=== PATIENT | male | born 1950 | race Caucasian/White ===

== ENCOUNTER → 2018-03-27 | Outpatient (CLI) | payer OTHER, MEDICARE | LOC: M.ULTRA 10:21 | DX: K74.60 Unspecified cirrhosis of liver (principal); Z94.4 Liver transplant status; Z79.899 Other long term (current) drug therapy ==

== ENCOUNTER 2018-11-01 17:58 | Inpatient (IN) | payer OTHER, MEDICARE ==
[~2018-11-01] VITALS: Ht 180.3 cm; Wt 133.6 kg
--- NOTE | ~2018-11-01 | CON ---
[address] [address] CONSULTATION Name: МАРИНА PABLO Room: [address] IN M.R.#: [id number] Admission: 11/01/18 Attend Phys: Pascale Chandler MD Discharge: Date of : 54 Report #: [id number] THIS REPORT FOR: //name// CC: Rolf Chandler DATE OF SERVICE: 11/04/2018 REQUESTING PHYSICIAN: Naldo Kovacs DO REASON FOR CONSULTATION: Acute kidney injury. HISTORY OF PRESENT ILLNESS: The patient is a 67-year-old white male who was admitted on 11/01/2018 with chief complaints of chest pain. The patient apparently was walking on the treadmill with his and he suddenly developed shortness of breath, chest pressure, was brought to the Emergency Room, was diagnosed with STEMI, taken to laborer concrete paving and had a cardiac catheterization done with angioplasty and stenting of some coronary arteries. His creatinine on admission was 1.8. I do not know the baseline of his creatinine is up to 2.4 after cardiac catheterization. His BUN is 58. He is making urine. Hemoglobin is 15.2. Urinalysis not done. He had a CT of abdomen done without contrast and his kidneys were unremarkable. PAST MEDICAL HISTORY: He has some Lewy body dementia, also has a history of obesity, history of nonalcoholic cirrhosis with esophageal varices, status post liver transplant in 2006 follows at by his shear setter. He is on immunosuppressive therapy. MEDICATIONS: Prior to admission reviewed. From my standpoint, he was on cyclosporine, losartan. He also is on insulin. FAMILY HISTORY: Negative for renal disease. SOCIAL HISTORY: No tobacco or alcohol abuse. REVIEW OF SYSTEMS: Feels better now. States that he has no chest pain, no shortness of breath. No discomfort in his chest area. He is urinating without any difficulties. Rest of the systems reviewed and negative. PHYSICAL EXAMINATION: GENERAL: Awake, alert, oriented. VITAL SIGNS: Blood pressure 134/70, heart rate 89, [place] [address] CONSULTATION Name: BEVМАРИНА NOHELIA Room: [address]#: [id number] Admission: 11/01/18 Attend Phys: Psacale Chandler MD Discharge: Date of : 54 Report #: [id number] HEENT: Pupils are round. NECK: Fatty. LUNGS: Decreased air movements, but no crackles. CARDIOVASCULAR: Distant heart tones. ABDOMEN: Obese. LOWER EXTREMITIES: Trace edema. ASSESSMENT: 1. Acute kidney injury due to contrast nephropathy. 2. Coronary artery disease, status post myocardial infarction on 11/01/2018. His troponin is still elevated, actually went up after admission to 37.1 on 11/03/2018. I will defer that to Cardiology. 3. Morbid obesity. 4. Hypertension. 5. History of known alcoholic cirrhosis, status post liver transplant. 6. Dementia. PLAN: 1. The patient is euvolemic. 2. We will await Cardiology opinion on his elevated troponin level. 3. Follow his electrolytes and renal function. 4. At this point, we probably would not diurese him. Thank you very much. By: 1326 2301Ajohnnie Griffith MD /PMT
[2018-11-01 18:03] VITALS: BP 193/98
[2018-11-01 18:12] LABS: ABSOLUTE BASOPHILS 0.1 thou/uL (0.0-0.2); ABSOLUTE EOSINOPHILS 0.3 thou/uL (0.0-0.7); ABSOLUTE LYMPHOCYTES 1.6 thou/uL (0.8-5.3); ABSOLUTE MONOCYTES 0.6 thou/uL (0.0-1.2); ABSOLUTE NEUTROPHILS 4.7 thou/uL (1.6-8.1); BASOPHILS 0.8 %; EOSINOPHILS 4.7 %; HEMATOCRIT 46.4 % (42.0-52.0); HEMOGLOBIN 15.5 gm/dL (14.0-18.0); LYMPHOCYTES 21.7 %; MCH 31.2 pg (26.0-34.0); MCHC 33.4 g/dL (28.0-37.0); MCV 93.4 fL (80.0-100.0); MONOCYTES 8.5 %; MPV 8.5 fl. (7.2-11.1); NUCLEATED RBCS 0 /100WBC; PLATELET COUNT* 265 thou/uL (150-400); POLYS 64.3 %; RBC 4.97 mil/uL (4.50-6.00); RDW-CV 13.8 % (10.5-14.5); WBC 7.3 thou/uL (4.0-11.0)
[2018-11-01 18:21] LABS: CALCIUM 9.1 mg/dL (8.5-10.1); CREATININE 1.8 mg/dL (0.6-1.3); POTASSIUM 4.3 mmol/L (3.5-5.1)
[2018-11-01 18:29] LABS: APTT 26.1 Seconds (25.0-31.3); PROTIME 10.1 Seconds (9.20-11.50)
[2018-11-01] MEDS ORDERED: GENGRAF100 MG PO (18:30)
[2018-11-01] MEDS ORDERED: GEMFIBROZIL 60600 MG PO (18:30)
[2018-11-01] MEDS ORDERED: ARICEPT 5 MG TAB5 MG PO (18:31)
[2018-11-01] MEDS ORDERED: COZAAR 25 MG TA25 M1 PO (18:31)
[2018-11-01] MEDS ORDERED: ATORVASTATIN CA40 MG PO (18:32)
[2018-11-01] MEDS ORDERED: ALENDRONATE SOD70 MG PO (18:32)
[2018-11-01] MEDS ORDERED: OMEPRAZOLE20 M2 PO (18:32)
[2018-11-01] MEDS ORDERED: VITAMIN D2000 UNIT PO (18:32)
[2018-11-01] MEDS ORDERED: BASAGLAR K100 UNIT/1 INJECTION (18:33)
[2018-11-01] MEDS ORDERED: HUMALOG100 UNIT/2 INJECTION (18:33)
[2018-11-01] MEDS ORDERED: TYLENOL EXTRA500 MG PO (18:34)
[2018-11-01] MEDS ORDERED: ALLER-CHLOR4 MG PO (18:35)
[2018-11-01 18:40] LABS: ALBUMIN 3.4 g/dL (3.4-5.0); CK-MB MASS 3.4 ng/mL (<0.5-3.6); MAGNESIUM 1.1 mg/dL (1.8-2.4); TOTAL BILIRUBIN 0.4 mg/dL (<0.1-1.0); TOTAL PROTEIN 7.9 g/dL (6.4-8.2); TROPONIN-I LEVEL 0.09 ng/mL (<0.06)
[2018-11-01 20:48] VITALS: BP 147/98
[2018-11-01 21:07] VITALS: BP 173/92
[2018-11-01 23:36] VITALS: BP 175/86
[2018-11-01 23:37] VITALS: BP 160/87
[2018-11-02] VITALS (13 sets, daily range): BP systolic 127–163; BP diastolic 62–88
[2018-11-02 02:32] LABS: HEMATOCRIT 46.7 % (42.0-52.0); HEMOGLOBIN 15.5 gm/dL (14.0-18.0); MCH 31.4 pg (26.0-34.0); MCHC 33.3 g/dL (28.0-37.0); MCV 94.4 fL (80.0-100.0); MPV 8.4 fl. (7.2-11.1); RBC 4.94 mil/uL (4.50-6.00); RDW-CV 14.1 % (10.5-14.5); WBC 9.3 thou/uL (4.0-11.0)
[2018-11-02 03:12] LABS: CALCIUM 9.5 mg/dL (8.5-10.1); MAGNESIUM 1.7 mg/dL (1.8-2.4); POTASSIUM 4.8 mmol/L (3.5-5.1)
--- NOTE | 2018-11-02 06:52 | NUR ---
RECIEVED PT AT APPROX 2100. AWAKE AND ORIENTED X4. PLACED ON DIRECTOR OF MATERNITY SERVICES TRACING SR BBB. PLACED COMFORTABLY ON BED. WITH COMPLAINTS OF 2/10 CHEST PAIN RADIATING TO THE LEFT SHOULDER. PLACED ON O2 INHALATION AT 4L, O2 SAT @ 90-92%. LAB RESULTS RELAYED TO DR. POLK, PHONE ORDERS RECEIEVED AND CARRIED OUT. HOURLY ROUNDING DONE FOR PT SAFETY.
--- NOTE | 2018-11-02 07:25 | NUR ---
CHANGE OF SHIFT BEDSIDE REPORT GIVEN PATIENT SEEN AT BEDSIDE, IN BED RESTING ASSUMED PATIENT CARE
--- NOTE | 2018-11-02 10:23 | EKG ---
[place] [address] ELECTROCARDIOGRAM REPORT Name: МАРИНА PABLO Room: [place] [address] ADM IN .R.#: [id number] Admission: 11/01/18 Attend Phys: Pascale Chandler MD Discharge: Date of : 54 Report #: [id number] THIS REPORT FOR: //name// [facility] ED Test Date: 2018-11-01 Test Time: 18:01:16 Pat Name: МАРИНА PABLO Department: Room: [facility] Gender: M Digital Retoucher: GISSELLE : 1950 Requested By: Timbo Weiss Order Number: [id number] MD: Peter Hart Measurements Intervals [place] Rate: 76 P: 47 OR: 197 QRS: -35 QRSD: 111 T: 63 QT: 413 QTc: 465 Interpretive Statements Sinus rhythm Incomplete RBBB and LAFB Abnormal R-wave progression, early transition No previous ECG available for comparison Electronically Signed On 11-02-2018 10:22:52 TOOL LIAISON by Peter Hart [email or web address] <ELECTRONICALLY SIGNED> By: Peter Hart MD, FACC 11/02/18 1022 180 1801 Peter Hart MD, [facility] /EPI
--- NOTE | 2018-11-02 10:24 | EKG ---
[place] [address] ELECTROCARDIOGRAM REPORT Name: NEERAJSASHAМАРИНА POZO Room: [place] [address] ADM IN .R.#: [id number] Admission: 11/01/18 Attend Phys: Pascale Chandler MD Discharge: Date of : 54 Report #: [id number] THIS REPORT FOR: //name// [facility] Test Date: 2018-11-02 Test Time: 06:10:26 Pat Name: МАРИНА PABLO Department: Room: [place] [address] Gender: M Music Ministries Director: : 1950 Requested By: Pascale Chandler Order Number: [id number] Reading MD: Peter Hart Measurements Intervals [place] Rate: 99 P: 50 IA: 190 QRS: -53 QRSD: 112 T: 36 QT: 380 QTc: 488 Interpretive Statements Sinus rhythm Incomplete RBBB and LAFB Abnormal R-wave progression, late transition Borderline prolonged QT interval No previous ECG available for comparison Electronically Signed On 11-02-2018 10:24:39 HEEL NAIL RASPER by Peter Hart [email or web address] <ELECTRONICALLY SIGNED> By: Peter Hart MD, FACC 11/02/18 1024 0610 0610 Peter Hart MD, [facility] /EPI
--- NOTE | 2018-11-02 10:24 | EKG ---
[place] [address] ELECTROCARDIOGRAM REPORT Name: BEVМАРИНА NOHELIA Room: [place] [address] ADM IN .R.#: [id number] Admission: 11/01/18 Attend Phys: Pascale Chandler MD Discharge: Date of : 54 Report #: [id number] THIS REPORT FOR: //name// [facility] Test Date: 2018-11-02 Test Time: 00:10:55 Pat Name: МАРИНА PABLO Department: Room: [place] [address] Gender: M Senior Php Web Developer: : 1950 Requested By: Timbo Weiss Order Number: [id number] Reading MD: Peter Hart Measurements Intervals [place] Rate: 98 P: 47 MN: 196 QRS: -52 QRSD: 110 T: 38 QT: 371 QTc: 474 Interpretive Statements Sinus rhythm Incomplete RBBB and LAFB Right ventricular hypertrophy No previous ECG available for comparison Electronically Signed On 11-02-2018 10:24:14 ACCESS REP by Peter Hart [email or web address] <ELECTRONICALLY SIGNED> By: Peter Hart MD, [facility] 11/02/18 1024 0010 0010 Peter Hart MD, FAC /EPI
[2018-11-02 10:45] LABS: CHOLESTEROL 225 mg/dL (<200); HDL CHOLESTEROL 46 mg/dL (>40); LDL CHOLESTEROL 157 mg/dL (<100); SERUM ASSESSMENT Clear; TC:HDL 4.9 Ratio (Not establshd); TRIGLYCERIDE 114 mg/dL (<150); VLDL 23 mg/dL (<40)
--- NOTE | 2018-11-02 12:00 | NUR ---
MET WITH PT AND /HARMONY TO DISCUSS HOME SITUATION/DC PLANNING. PT LIVES WITH . HIS 92 Y/O MOTHER LIVES IN THE [place] AL[place]. THEY CARE FOR HER BUT SHE IS FAIRLY INDEPENDENT. PT IS INDEPENDENT WITH ADLS, HE IS HOME DURING THE DAY WHILE HARMONY WORKS. PT HAS LEWY BODY DEMENTIA PER HARMONY AND IS 'FORGETFUL.' HE DOES HAVE A LIST OF 'DUTIES' TO DO AT HOME AND IS ABLE TO PERFORM THOSE IE: LAUNDRY, ETC. PT HAS NOT HAD HH OR BEEN TO SNF. PLAN IS FOR HIM TO RETURN HOME AT DC. HARMONY IS DPOA. WILL FOLLOW
--- NOTE | 2018-11-02 13:22 | 2DMMODE ---
[place] [address] 2 D/M-MODE ECHOCARDIOGRAM Name: BEVМАРИНА MORENOUGHAN Room: [facility] ADM IN .R.#: [id number] Admission: 11/01/18 Attend Phys: Pascale Chandler, Discharge: Date of : 54 Date of Service: 11/02/18 1322 Report #: [id number] THIS REPORT FOR: //name// APPROVED REPORT Study performed: 11/02/2018 11:41:01 EXAM: Comprehensive 2D, Doppler, and color-flow Echocardiogram Patient Location: In-Patient Room #: 227 Status: routine BSA: 2.47 HR: 103 bpm BP: 157/72 mmHg Rhythm: NSR Other Information Study Quality: Adequate Indications Non STEMI 2D Dimensions IVSd: 15.13 (7-11mm) LVOT Diam: 19.29 (18-24mm) LVDd: 48.90 mm PWd: 10.94 (7-11mm) Ascending Ao: 36.56 (22-36mm) LVDs: 31.98 (25-40mm) Aortic Root: 32.74 mm Volumes Left Atrial Volume (Systole) LA ESV Index: 22.60 mL/m2 Aortic Valve AoV Peak Mega.: 1.48 m/s AO Peak Gr.: 8.75 mmHg LVOT Max P.85 mmHg AO Mean Gr.: 5.05 mmHg LVOT Mean P.09 mmHg LVOT Max V: 1.57 m/s AO V2 VTI: 27.73 cm LVOT Mean V: 1.04 m/s CHANTALE (VTI): 2.85 cm2 LVOT V1 VTI: 27.07 cm Mitral Valve E/A Ratio: 0.85 MV Decel. Time: 153.45 ms MV E Max Mega.: 1.13 m/[place] [address] 2 D/M-MODE ECHOCARDIOGRAM Name: МАРИНА PABLO Room: [place] [address] ADM IN .R.#: [id number] Admission: 11/01/18 Attend Phys: Pascale Chandler, Discharge: Date of : 54 Date of Service: 11/02/18 1322 Report #: [id number] MV PHT: 44.50 ms MVA (PHT): 4.94 cm2 TDI E/Lateral E': 8.69 E/Medial E': 10.27 Medial E' Mega.: 0.11 m/s Lateral E' Mega.: 0.13 m/s Pulmonary Valve PV Peak Mega.: 1.23 m/s PV Peak Gr.: 6.07 mmHg Tricuspid Valve RAP Estimate: 5.00 mmHg TR Peak Gr.: 39.26 mmHg RVSP: 44.00 mmHg PA Pressure: 44.00 mmHg Left Ventricle The left ventricle is normal size. Regional wall motion is not well visualized but grossly normal. There is normal left ventricular wall thickness. Left ventricular systolic function is normal. The left ventricular ejection fraction is within the normal range. LVEF is 60-65%. Grade I - abnormal relaxation pattern. Right Ventricle The right ventricle is normal size. The right ventricular systolic function is normal. Atria Left atrium is borderline dilated. The right atrium size is normal. Aortic Valve The aortic valve is normal in structure. No aortic regurgitation is present. There is no aortic valvular stenosis. Mitral Valve The mitral valve is normal in structure. There is no mitral valve regurgitation noted. No evidence of mitral valve stenosis. Tricuspid Valve The tricuspid valve is normal in structure. Mild tricuspid regurgitation. Moderate pulmonary hypertension. Pulmonic Valve The pulmonary valve is normal in structure. There is no [place]mon[place] [address] 2 D/M-MODE ECHOCARDIOGRAM Name: МАРИНА PABLO Room: [address] IN [facility]#: [id number] Admission: 11/01/18 Attend Phys: Pascale Chandler, Discharge: Date of : 54 Date of Service: 11/02/18 1322 Report #: [id number] Great Vessels The aortic root is normal in size. IVC is not visualized. Pericardium There is no pericardial effusion. <Conclusion> LVEF is 60-65%. Regional wall motion is not well visualized but grossly normal. Left atrium is borderline dilated. There is no aortic valvular stenosis. No aortic regurgitation is present. Mild tricuspid regurgitation. Moderate pulmonary hypertension. There is no pericardial effusion. <ELECTRONICALLY SIGNED> By: Peter Hart MD, FACC 11/02/18 1322 21 21 Peter Hart MD, FACC /INF
[2018-11-02 19:08] LABS: GLYCOHEMOGLOBIN (HGB A1C) 8.7 % (4.8-5.6)
[2018-11-03] VITALS (7 sets, daily range): BP systolic 101–159; BP diastolic 49–88
--- NOTE | 2018-11-03 04:40 | NUR ---
ASSUMED PT CARE @1930. PT AWAKE AND ORIENTED X4. NOT IN DISTRESS. KEPT ON O2 PER NC AT 4L WITH O2 SAT OF 95-96% STEAM FITTER IN PLACE TRACING TO SR. DENIES CHEST PAIN. POST CARDIAC CATH SITE IN THE RIGHT GROIN INTACT AND DRY, RIGHT RADIAL SITE INTACT, WITH APPROX. 1CM BLOOD NOTED IN RAD STAT. KEPT ON BED REST UNTIL 2300. CALL LIGHT IN PLACE. HOURLY ROUNDING DONE FOR PT SAFETY.
[2018-11-03 05:09] LABS: HEMATOCRIT 45.2 % (42.0-52.0); HEMOGLOBIN 14.7 gm/dL (14.0-18.0); MCH 30.9 pg (26.0-34.0); MCHC 32.6 g/dL (28.0-37.0); MCV 94.7 fL (80.0-100.0); MPV 8.7 fl. (7.2-11.1); RBC 4.78 mil/uL (4.50-6.00); WBC 12.5 thou/uL (4.0-11.0)
[2018-11-03 05:21] LABS: ALBUMIN 3.3 g/dL (3.4-5.0); CALCIUM 9.5 mg/dL (8.5-10.1); PHOSPHORUS* 2.4 mg/dL (2.5-4.9); TOTAL BILIRUBIN 0.5 mg/dL (<0.1-1.0); TOTAL PROTEIN 7.7 g/dL (6.4-8.2)
[2018-11-03 05:30] LABS: POTASSIUM 6.4 mmol/L (3.5-5.1); TROPONIN-I LEVEL 37.19 ng/mL (<0.06)
--- NOTE | 2018-11-03 07:25 | NUR ---
PATIENT CAHNGE OF SHIFT, BEDSIDE REPORT GIVEN PATIENT SEEN IN BED ASLEEP ASSUMED PATIENT CARE
--- NOTE | 2018-11-03 10:12 | CARD ---
[address] [address] CARDIAC CATH REPORT Name: МАРИНА PABLO Room: [facility] ADM IN [facility]#: [id number] Admission: 11/01/18 Attend Phys: Pascale Chandler MD Discharge: Date of : 54 Report #: [id number] THIS REPORT FOR: //name// APPROVED REPORT Study performed: 11/02/2018 16:13:20 Patient Details Patient Status: In-Patient Room #: 227 The patient is a 67 year-old male Event Personnel Peter Hart Cathode Washer, Neida Ortega RTHannah Scrub, Nayely Carbajal RN Loan Review Manager, Dmitry Niño (R) Monitor, Tod Trammell Schmalzbach, Brittany RN Loan Review Manager, Hannah Diaz Monitor, Rolf Knight Tank Builder Supervisor Procedures Performed Art Access - R femoral artery* CHRISTOFER Place w/wo Plasty Single CIRC CHRISTOFER Place w/wo Plasty Addl BR PDA C9601 DESADDL Indication Positive stress test Risk Factors Obesity, Hypercholesterolemia Admission/Lab Medications/Medications given during procedure Aspirin, Platelet Aff. Inhib., Angiomax bolus and infusion Procedure Narrative The patient was brought electively to the Cardiac Catheterization Laboratory and was prepped and draped in a sterile manner. The right femoral was infiltrated with 2% Lidocaine subcutaneous anesthesia. A 6fr Ultimum Sheath sheath was inserted into the right femoral artery. Coronary angiography was performed using coronary diagnostic catheters. The right coronary system was accessed and visualized with a Diagnostic 6Fr JR4 catheter. The left coronary system was accessed and visualized with a Diagnostic 6Fr JL4 catheter. The left ventricle was accessed and visualized with a Diagnostic 6Fr angled pigtail catheter. Left ventricular/Aortic Valve gradient assessed via catheter pullback. Pre-demployment femoral angiogram was performed . Closure device was deployed with a Fr Angioseal STS 6Fr. The patient tolerated the procedure well and there were no complications associated with the procedure. [place] [address] CARDIAC CATH REPORT Name: МАРИНА PABLO Room: [address] IN [facility]#: [id number] Admission: 11/01/18 Attend Phys: Pascale Chandler MD Discharge: Date of : 54 Report #: [id number] Intraoperative Conscious Sedation Sedation start time: 8 Case end Time: 1810 Fentanyl 50 mcg Versed 4 mg Fluoro Time: 18 minutes Dose: DAP [id number] cGycm2 3675 mGy Contrast Type and Amount: Visipaque 300 ml Coronary Angiography The patient's coronary anatomy is right dominant. Diagnostic Cath Left Main 0% narrowing LAD 30% mid LAD narrowing Circumflex 90% distal circumflex stenosis extending into the second posterolateral branch of the distal circumflex Right Coronary 30% proximal 40% mid vessel narrowing; there is 90% stenosis of the proximal portion of the prominent posterior descending branch that emanated from the acute margin Left Ventriculography Left Ventriculography was not performed. Hemodynamics The aortic pressure is 125/66 mmHg with a mean of 90 mmHg. The left ventricular pressure is 117/14 mmHg with a mean of mmHg. The left ventricular end diastolic pressure is 25 mmHg. PCI Technique Lesion Anticoagulation was achieved with Angiomax. Percutaneous coronary intervention was performed on the second left posterolateral descending artery segment. The lesion stenosis prior to intervention was 90% with DANYA 3 flow. A 6F XB LAD 3.5 Guide Catheter was used to engage the ostium. A BMW 190cm Interventional Guidewire was used to cross the lesion. BALLOON DILATION A Balloon catheter Mini Trek RX 2.0 X 15 was inserted and inflated up to 12.00atm for 14seconds. Additional Inflation: 14.00atm for 13seconds. STENT DEPLOYMENT A drug-eluting stent Jesse RX Stent 2.0X18mm was inserted and inflated up to 12.00atm for 11seconds. Additional Inflation: 14.00atm [place] [address] CARDIAC CATH REPORT Name: МАРИНА PABLO Room: [address] IN [facility]#: [id number] Admission: 11/01/18 Attend Phys: Pascale Chandler MD Discharge: Date of : 54 Report #: [id number] for 14seconds. Final angiography reveals 0 % stenosis with DANYA 3 flow. PCI Technique Lesion 2 Percutaneous Coronary Intervention was performed on the right posterior descending artery. The lesion stenosis prior to intervention was 90% with DANYA 3 flow. A 6FR JCR 4 100CM Guide Catheter was used to engage the ostium. A BMW 190cm Interventional Guidewire was used to cross the lesion. Stent Deployment A drug-eluting stent Jesse RX Stent 2.0X12mm was inserted and inflated up to 10.00atm for 12seconds. Additional Inflation: 12.00atm for 12seconds. Final angiography reveals 0 % stenosis with DANYA 3 flow. Conclusion #1 significant coronary artery disease characterized by the following: A 30% mid LAD narrowing B 90% stenosis of the distal circumflex as it extended into the second posterolateral branch of the distal circumflex C dominant right coronary artery with 30% proximal and 40% mid vessel narrowing with 90% stenosis of the proximal portion of the posterior descending branch #2 moderately severe elevation of left ventricular end-diastolic pressure at rest #3 successful percutaneous coronary intervention with deployment of drug-eluting stent at the site of 90% distal circumflex extending into the posterolateral branch stenosis with 0% residual narrowing. #4 successful percutaneous coronary intervention with deployment of drug-eluting stent at site of 90% stenosis in the proximal portion of the posterior descending branch of the right coronary artery with 0% residual narrowing and DANYA 3 flow to the [place] [address] CARDIAC CATH REPORT Name: МАРИНА PABLO Room: [address] IN [facility]#: [id number] Admission: 11/01/18 Attend Phys: Pascale Chandler MD Discharge: Date of : 54 Report #: [id number] Cardiac Risk Reduction Program Aggressive Medical Therapy Medications Administered Aspirin (any) Ticagrelor Diagnostic Cath Approved by: Peter Hart MD Date/Time: 11/03/2018 10:11:39 <ELECTRONICALLY SIGNED> By: Rolf Knight MD, FACC 11/03/18 1012 11 11Rolf Knight MD, FACC /INF
--- NOTE | 2018-11-03 10:25 | EKG ---
[place] [address] ELECTROCARDIOGRAM REPORT Name: BEVМАРИНА NOHELIA Room: [place] [address] ADM IN M.R.#: [id number] Admission: 11/01/18 Attend Phys: Pascale Chandler MD Discharge: Date of : 54 Report #: [id number] THIS REPORT FOR: //name// [facility] Test Date: 2018-11-02 Test Time: 19:02:52 Pat Name: МАРИНА PABLO Department: Room: [place] [address] Gender: M Facepiece Line Supervisor: 1883 : 1950 Requested By: Rolf Knight Order Number: [id number] Char MD: Rolf Knight Measurements Intervals [place] Rate: 79 P: 25 ND: 186 QRS: -53 QRSD: 116 T: 30 QT: 394 QTc: 452 Interpretive Statements Sinus rhythm Incomplete RBBB and LAFB Compared to ECG 11/02/2018 06:10:26 No significant changes Electronically Signed On 11-03-2018 10:24:53 INCINERATOR ATTENDANT by Rolf Knight [email or web address] <ELECTRONICALLY SIGNED> By: Rolf Knight MD, [facility] 11/03/18 1024 190 01 Rolf Knight MD, FAC /EPI
--- NOTE | 2018-11-03 10:25 | EKG ---
[place] [address] ELECTROCARDIOGRAM REPORT Name: МАРИНА PABLO Room: [place] [address] ADM IN M.R.#: [id number] Admission: 11/01/18 Attend Phys: Pascale Chandler MD Discharge: Date of : 54 Report #: [id number] THIS REPORT FOR: //name// [facility] Test Date: 2018-11-03 Test Time: 03:42:24 Pat Name: МАРИНА PABLO Department: Room: [place] [address] Gender: M Assisted Living Assistant: JCRUZ : 1950 Requested By: Rolf Knight Order Number: [id number] Char MD: Rolf Knight Measurements Intervals [place] Rate: 74 P: 51 NV: 191 QRS: -59 QRSD: 114 T: 37 QT: 405 QTc: 450 Interpretive Statements Sinus rhythm Incomplete RBBB and LAFB Abnormal R-wave progression, late transition Baseline wander in lead(s) V2 Compared to ECG 11/02/2018 06:10:26 No significant changes Electronically Signed On 11-03-2018 10:25:33 SAFETY GROOVING MACHINE OPERATOR by Rolf Knight [email or web address] <ELECTRONICALLY SIGNED> By: Rolf Knight MD, [facility] 11/03/18 1025 0342 0342 Rolf Knight MD, [facility] /EPI
[2018-11-04] VITALS (8 sets, daily range): BP systolic 83–149; BP diastolic 51–88
--- NOTE | 2018-11-04 02:58 | NUR ---
ASSUMED PT CARE AT 1930. ASSESSMENT COMPLETED CHARTED. ABLE TO MAKE NEEDS KNOWN. NO C/O PAIN OR DISCOMFORT. PT USING URINAL AND MEASURING OUTPUT. RESTING IN BED AT THIS TIME. WILL CONTINUE TO MONITOR.
[2018-11-04 05:50] LABS: HEMATOCRIT 45.5 % (42.0-52.0); HEMOGLOBIN 15.2 gm/dL (14.0-18.0); MCH 31.7 pg (26.0-34.0); MCHC 33.4 g/dL (28.0-37.0); MCV 94.6 fL (80.0-100.0); MPV 8.8 fl. (7.2-11.1); RBC 4.8 mil/uL (4.50-6.00); WBC 9.4 thou/uL (4.0-11.0)
[2018-11-04 06:07] LABS: CALCIUM 9.7 mg/dL (8.5-10.1); CREATININE 2.4 mg/dL (0.6-1.3)
[2018-11-04 06:09] LABS: POTASSIUM 4.3 mmol/L (3.5-5.1)
--- NOTE | 2018-11-04 16:25 | NUR ---
ALERT AND OREINTED X4. UP WITH ASSIST X1 WITH WALKER AND GAIT BELT. IV X2 ARE PATENT AND SALINE LOCKED. TOLERATING DIET. ATTENDED PHYSICAL THERAPY THIS AM. IS AT BEDSIDE AND ENCOURAGED THROUGHOUT SHIFT. VSS ON 1L O2. BEEN TITRATING OFF OXYGEN THROUGHOUT SHIFT. HOURLY ROUNDS HAVE BEEN MAINTAINED THROUGHOUT SHIFT. CALL LIGHT IS WITHIN REACH. NURSING WILL CONTINUE TO MONITOR.
[2018-11-05 00:06] VITALS: BP 107/67
--- NOTE | 2018-11-05 04:48 | NUR ---
ASSUMED PT CARE AT 1930. ASSESSMENT COMPLETED CHARTED. ABLE TO MAKE NEEDS KNOWN. NO C/O PAIN OR DISCOMFORT. RESTING IN BED COMFORTABLY. ON SLEEP STUDY SONAL. IS EXCITED ABOUT POSSIBLY GOING HOME TODAY. VSS. WILL CONTINUE TO MONITOR.
[2018-11-05 04:52] VITALS: BP 110/70
[2018-11-05 05:15] LABS: HEMATOCRIT 43.9 % (42.0-52.0); HEMOGLOBIN 14.5 gm/dL (14.0-18.0); MCH 31.1 pg (26.0-34.0); MCHC 33.1 g/dL (28.0-37.0); MCV 94.1 fL (80.0-100.0); MPV 8.9 fl. (7.2-11.1); NUCLEATED RBCS 0 /100WBC; PLATELET COUNT* 274 thou/uL (150-400); RBC 4.67 mil/uL (4.50-6.00); RDW-CV 13.9 % (10.5-14.5); WBC 11.1 thou/uL (4.0-11.0)
[2018-11-05 05:30] LABS: ALBUMIN 3.2 g/dL (3.4-5.0); CALCIUM 9.4 mg/dL (8.5-10.1); MAGNESIUM 2.4 mg/dL (1.8-2.4); POTASSIUM 4.4 mmol/L (3.5-5.1); TOTAL BILIRUBIN 0.7 mg/dL (<0.1-1.0); TOTAL PROTEIN 7.4 g/dL (6.4-8.2)
[2018-11-05 06:13] LABS: ABSOLUTE LYMPHOCYTES 1.3 thou/uL (0.8-5.3); ABSOLUTE MONOCYTES 0.6 thou/uL (0.0-1.2); ABSOLUTE NEUTROPHILS 9.2 thou/uL (1.6-8.1); PLATELET ESTIMATE ADEQUATE
[2018-11-05 09:00] VITALS: BP 136/65
--- NOTE | 2018-11-05 09:23 | CON ---
[address] [address] CONSULTATION Name: МАРИНА PABLO Room: [address] M.R.#: [id number] Admission: 11/01/18 Attend Phys: Pascale Chandler MD Discharge: Date of : 54 Report #: [id number] THIS REPORT FOR: //name// CC: Rolf Chandler DATE OF SERVICE: 11/04/2018 REQUESTING PHYSICIAN: Dr. Sepulveda. INDICATION FOR CONSULTATION: Hypoxia. The patient has been requiring 2-4 liters of oxygen. The patient previously has not been on supplemental oxygen, HISTORY OF PRESENT ILLNESS: This is a 67-year-old gentleman. His history includes history of liver transplantation. He has had a liver transplant secondary to JIMENEZ. He came in this time with chest pain. He was noted to have a small myocardial infarction with a troponin I elevated to 8.9. He has undergone a cardiac catheterization earlier this admission. His creatinine on admission was 1.8. His baseline creatinine is not known to me. Since admission, the patient has been requiring oxygen between 2-4 liters, yesterday he was requiring oxygen at 4 liters to maintain O2 saturation in the low 90s. This has improved to 2 liters now; however, his O2 saturation still remains around 93% and therefore, the patient still remains on oxygen. He has had a CT chest performed, which shows minor scarring and atelectasis at bilateral lung bases and is otherwise unremarkable. He has had a V/Q scan, which is low probability for thromboembolic disease. The patient sleeps on his side. He does not have disturbed sleep at night; however, he does have significant daytime sleepiness and does take multiple naps during the day. The patient at this time says that he does not have any significant shortness of breath at rest. REVIEW OF SYSTEMS: There is no cough, no longer has chest pain. There is no runny nose or sore throat. There is no swelling of lower extremities or calf pain. He does take medications for heartburn at home; he does not however have any heartburn at this time. REVIEW OF SYSTEMS: For 12 points is negative except as mentioned above. PAST MEDICAL HISTORY: JIMENEZ, requiring liver transplantation. He is on immune suppressive medication. He has had varices. He may have early Lewy body dementia, diabetes. SOCIAL HISTORY: Lifetime nonsmoker. No known history of heavy alcohol use or illegal drug use. CURRENT MEDICATIONS: List [place] [address] CONSULTATION Name: МАРИНА PABLO Room: [address]#: [id number] Admission: 11/01/18 Attend Phys: Pascale Chandler MD Discharge: Date of : 54 Report #: [id number] HOME MEDICATIONS: List in [facility] reviewed. FAMILY HISTORY: Asthma, lung cancer. ALLERGIES: No known drug allergies. PHYSICAL EXAMINATION: GENERAL: He is alert, awake and oriented, does not appear to be in any distress at this time. VITAL SIGNS: In the records and these are reviewed. Pulse 93, blood pressure 149/88. He is saturating 93%. He is on 2 liters nasal cannula. His respiratory rate was 12-14 at the time of my examination. He is afebrile with a temperature of 36.4. HEENT: There is no throat erythema. He has a narrow airway, Mallampati 4. NECK: Does not show raised JVP. CHEST: Clear to auscultation. HEART: Regular. There is no murmur. ABDOMEN: Mildly distended. There are some palpable abdominal hernias. There is no tenderness. EXTREMITIES: Lower extremities show minimal edema only. There is no calf tenderness. LABORATORY DATA: The patient's lab work as well as CT chest from yesterday as well as V/Q scan are [facility] and these are reviewed. ASSESSMENT AND PLAN: 1. Hypoxia. The patient is still requiring 2 liters of oxygen. He is not on oxygen at home. The likely etiology of this hypoxia is atelectasis in addition to morbid obesity and obstructive sleep apnea in the background. I would recommend ambulating the patient, also suggest incentive spirometry. They would be of benefit if he uses a BiPAP at night. I discussed this with the patient. The patient decided to hold off for now. On my exam, he does not appear to be significantly fluid overloaded despite elevation in proBNP. Doubt that bronchospasm is playing is a major role in his hypoxemia, regardless I do favor continuing with DuoNeb as currently prescribed and we will give him one dose of Solu-Medrol and see how he responds. Note that I am aware this is likely going to lead to some elevation in his glucoses. 2. Hypersomnia, history is consistent with obstructive sleep apnea. Recommend an outpatient sleep study and weight loss. 3. Atelectasis. See discussion above. 4. Acute renal failure. The patient's creatinine is now 2.4, it was 1.8 at admission. His baseline creatinine is not available to me. Considering that he also received a recent IV dye, when he had cardiac catheterization. I favor not giving him more diuretics at this time, but I understand that Nephrology service is also being consulted. We therefore also await their recommendations. [facility] [address] CONSULTATION Name: МАРИНА PABLO Room: [address] [place] .R.#: [id number] Admission: 11/01/18 Attend Phys: Pascale Chandler MD Discharge: Date of : 54 Report #: [id number] patient had critical low magnesium level earlier this admission, up to 1.1, which was replaced. I recommend that we repeat a magnesium level now and then see if replacement is indicated. 5. Non-ST segment myocardial infarction, status post cardiac catheterization as discussed above. Echocardiogram shows a normal left ventricular ejection fraction with mild elevation in right heart pressures to 44. 6. Mild Pulmonary Hypertension. Likely secondary to sleep apnea. Chronic liver disease may also be a component. Thanks for this consultation. <ELECTRONICALLY SIGNED> By: Porter Sheppard MD 11/05/18 0923 1117 1544Aalysa Sheppard MD /nt
[2018-11-05 12:00] VITALS: BP 112/64
[2018-11-05 16:00] VITALS: BP 112/64; BP 129/64
--- NOTE | 2018-11-05 19:39 | NUR ---
ASSUMED PT CARE AT 729, FULL ASSESMENT DONE CHARTED. PT A/O X4, UP AD ALENA TODAY, TOOK MULTIPLE WALKS IN [place] WITH . DENIES SOA, ON 1 L EXCEPT WHEN AMBULATING, PT TAKE O2 OFF, SATS MID 90'S. ALL OTHER VSS. SR ON THE MONITOR. REPORT GIVEN TO DIONISIO MARIN
[2018-11-05 20:00] VITALS: BP 119/73
[2018-11-06] VITALS: BP 121/68
--- NOTE | 2018-11-06 02:52 | NUR ---
ASSUMED PT CARE AT 1930. ASSESSMENT COMPLETED CHARTED. PT RESTING IN BED AT THIS TIME. NO C/O PAIN OR DISCOMFORT. ABLE TO MAKE NEEDS KNOWN. UP WITH STANDBY OR USES URINAL. WILL CONTINUE TO MONITOR.
[2018-11-06 04:00] VITALS: BP 144/79
[2018-11-06 05:11] LABS: ABSOLUTE BASOPHILS 0.1 thou/uL (0.0-0.2); ABSOLUTE EOSINOPHILS 0.4 thou/uL (0.0-0.7); ABSOLUTE LYMPHOCYTES 0.8 thou/uL (0.8-5.3); ABSOLUTE MONOCYTES 0.7 thou/uL (0.0-1.2); ABSOLUTE NEUTROPHILS 9.3 thou/uL (1.6-8.1); BASOPHILS 0.5 %; EOSINOPHILS 3.9 %; HEMATOCRIT 45.5 % (42.0-52.0); HEMOGLOBIN 15.2 gm/dL (14.0-18.0); LYMPHOCYTES 7.4 %; MCH 31.4 pg (26.0-34.0); MCHC 33.3 g/dL (28.0-37.0); MCV 94.5 fL (80.0-100.0); MONOCYTES 6.5 %; MPV 8.6 fl. (7.2-11.1); NUCLEATED RBCS 0 /100WBC; PLATELET COUNT* 308 thou/uL (150-400); POLYS 81.7 %; RBC 4.82 mil/uL (4.50-6.00); RDW-CV 13.9 % (10.5-14.5); WBC 11.3 thou/uL (4.0-11.0)
[2018-11-06 05:50] LABS: CALCIUM 9.8 mg/dL (8.5-10.1); MAGNESIUM 2.3 mg/dL (1.8-2.4); PHOSPHORUS* 6.5 mg/dL (2.5-4.9); POTASSIUM 5.4 mmol/L (3.5-5.1)
[2018-11-06 08:00] VITALS: BP 111/59
[2018-11-06 12:26] VITALS: BP 105/69
--- NOTE | 2018-11-06 14:41 | NUR ---
PER USED CAR RENOVATOR NOTE, PT IS INDEP W/O DME WALKING UP TO 350' AND MOD INDEP ON 12 STEPS. SPOKE W/ PT AND SPOUSE, PT VOICES NO CONCERNS REGARDING DISCHARGE TO HOME. PT DEMONSTRATES INDEP TRANSFERS AND GAIT. WILL DISCHARGE FROM PT SERVICES DUE TO INDEPENDENT LEVEL OF FUNCTION AND PT MEETING ALL GOALS.
--- NOTE | 2018-11-06 15:09 | NUR ---
Cardiac Rehab. Patient not in room, nor family, when this nurse came for education session twice. Will attempt to see tomorrow.
[2018-11-06 15:53] VITALS: BP 109/62
--- NOTE | 2018-11-06 19:05 | NUR ---
PT PROGRESSING TOWARD GOALS, HE HAS BEEN WALKING FREQUENTLY TODAY, DENIES PAIN, UP AD ALENA. GOOD APITITE, VSS, SR ON THE MONITOR. STAYING ANOTHER NIGHT TO MONITOR LABS. PT UPDATED ON PLAN OF CARE. CALLS APPROPRIATLY FOR NEEDS.
[2018-11-06 20:19] VITALS: BP 105/56
[2018-11-07] VITALS: BP 103/60
[2018-11-07 04:00] VITALS: BP 101/62
--- NOTE | 2018-11-07 05:34 | NUR ---
PT IS ABLE TO COMMUNICATE HIS NEEDS TO STAFF EFFECTIVELY. HE HAS DENIED THE NEED FOR PAIN MEDICATIONS UP TO THIS TIME. PT HAS BEEN UP AD ALENA AND STEADY THROUGHOUT THIS SHIFT. POSSIBLE DISCHARGE LATER TODAY.
[2018-11-07 05:56] LABS: HEMATOCRIT 44.7 % (42.0-52.0); MCH 31.8 pg (26.0-34.0); MCHC 33.5 g/dL (28.0-37.0); MCV 94.8 fL (80.0-100.0); MPV 8.3 fl. (7.2-11.1); RBC 4.71 mil/uL (4.50-6.00); RDW-CV 13.9 % (10.5-14.5); WBC 10.1 thou/uL (4.0-11.0)
[2018-11-07 06:35] LABS: CREATININE 2.6 mg/dL (0.6-1.3); POTASSIUM 5.4 mmol/L (3.5-5.1)
[2018-11-07 08:00] VITALS: BP 117/62
--- NOTE | 2018-11-07 08:32 | NUR ---
ASSUMED PT CARE AT 0700, PT LYING IN BED, CALL LIGHT IN REACH, JIG MILL OPERATOR TRACING SINUS RHYTHM. PT DENIES PAIN AT THIS TIME, RIGHT GROIN IS BRUISED BUT SOFT, PT HAD CARDIAC CATH ON . A&OX4, LS CTA, UP AD ALENA.
[2018-11-07] MEDS ORDERED: BRILINTA90 MG PO (08:39)
[2018-11-07] MEDS ORDERED: NITROGLYCERIN0.4 MG SUBLING (08:39)
[2018-11-07] MEDS ORDERED: LOPRESSOR25 PO (08:43)
[2018-11-07] MEDS ORDERED: ADULT LOW DOSE81 MG PO (08:46)
[2018-11-07 11:46] VITALS: BP 106/67
--- NOTE | 2018-11-07 14:25 | NUR ---
PT DISCHARGED AT 1340, EDUCATED ON DISCHARGE INSTRUCTIONS INCLUDING F/U APPTS AND MEDICATIONS, PT STATED UNDERSTANDING. GROIN CONT TO SHOW BRUISING BUT IS SOFT TO TOUCH. IV AND HOSE HANDLER REMOVED, PT ESCORTED TO WIFES CAR VIA NURSING STAFF IN WHEELCHAIR.
== END 2018-11-07 13:52 | disposition home or self-care (01) | DRG 853 ==
LOC: M.ERS 17:58 → M.TBA-ER 18:51 → M.2W 18:51
PROVIDERS: Family Medicine; Internal Medicine; Internal Medicine Cardiovascular Disease; Internal Medicine Critical Care Medicine; Registered Nurse; ADMIT Internal Medicine
PROC: 4A023N7 Measurement of Cardiac Sampling and Pressure, Left Heart, Percutaneous Approach (ICD-10-PCS; principal; 2018-11-03)
PROC: 027135Z Dilation of Coronary Artery, Two Arteries with Two Drug-eluting Intraluminal Devices, Percutaneous Approach (ICD-10-PCS; principal; 2018-11-03)
PROC: B2111ZZ Fluoroscopy of Multiple Coronary Arteries using Low Osmolar Contrast (ICD-10-PCS; principal; 2018-11-03)
PROC: B41J1ZZ Fluoroscopy of Other Lower Arteries using Low Osmolar Contrast (ICD-10-PCS; principal; 2018-11-03)
DX: A41.9 Sepsis, unspecified organism (principal); I21.4 Non-ST elevation (NSTEMI) myocardial infarction; J18.9 Pneumonia, unspecified organism; N17.0 Acute kidney failure with tubular necrosis; I50.21 Acute systolic (congestive) heart failure; J96.01 Acute respiratory failure with hypoxia; Z94.4 Liver transplant status; J98.11 Atelectasis; Z68.41 Body mass index [BMI] 40.0-44.9, adult; I13.0 Hypertensive heart and chronic kidney disease with heart failure and stage 1 through stage 4 chronic kidney disease, or unspecified chronic kidney disease; I50.32 Chronic diastolic (congestive) heart failure; I25.10 Atherosclerotic heart disease of native coronary artery without angina pectoris; G47.10 Hypersomnia, unspecified; I27.20 Pulmonary hypertension, unspecified; G31.83 Neurocognitive disorder with Lewy bodies; E11.22 Type 2 diabetes mellitus with diabetic chronic kidney disease; E78.5 Hyperlipidemia, unspecified; E87.5 Hyperkalemia; E83.39 Other disorders of phosphorus metabolism; F02.80 Dementia in other diseases classified elsewhere, unspecified severity, without behavioral disturbance, psychotic disturbance, mood disturbance, and anxiety; E66.01 Morbid (severe) obesity due to excess calories; Z79.4 Long term (current) use of insulin; Z79.899 Other long term (current) drug therapy; Z82.5 Family history of asthma and other chronic lower respiratory diseases; Z80.1 Family history of malignant neoplasm of trachea, bronchus and lung; N18.3 Chronic kidney disease, stage 3 (moderate); N14.1 Nephropathy induced by other drugs, medicaments and biological substances

== ENCOUNTER → 2018-11-30 | Outpatient (CLI) | payer OTHER, MEDICARE ==
[~2018-11-30] MED LIST: ADULT LOW DOSE81 MG PO; ALENDRONATE SOD70 MG PO; ALLER-CHLOR4 MG PO; ARICEPT 5 MG TAB5 MG PO; ATORVASTATIN CA40 MG PO; BASAGLAR K100 UNIT/1 INJECTION; BRILINTA90 MG PO; COZAAR 25 MG TA25 M1 PO; GEMFIBROZIL 60600 MG PO; GENGRAF100 MG PO; HUMALOG100 UNIT/2 INJECTION; LOPRESSOR25 PO; NITROGLYCERIN0.4 MG SUBLING; OMEPRAZOLE20 M2 PO; TYLENOL EXTRA500 MG PO; VITAMIN D2000 UNIT PO
== END ==
LOC: M.ULTRA 11-23 15:08
DX: R16.1 Splenomegaly, not elsewhere classified (principal); M81.0 Age-related osteoporosis without current pathological fracture; K74.60 Unspecified cirrhosis of liver; T86.49 Other complications of liver transplant; E11.9 Type 2 diabetes mellitus without complications; Z94.4 Liver transplant status; Z79.899 Other long term (current) drug therapy; Z79.4 Long term (current) use of insulin; Z90.49 Acquired absence of other specified parts of digestive tract

== ENCOUNTER → 2019-09-05 | Outpatient (CLI) | payer OTHER, MEDICARE | LOC: M.RAD 08-28 16:08 → M.ULTRA 07:21 | DX: M81.0 Age-related osteoporosis without current pathological fracture (principal); K74.0 Hepatic fibrosis; M89.8X9 Other specified disorders of bone, unspecified site; Z94.4 Liver transplant status; Z79.899 Other long term (current) drug therapy ==

== ENCOUNTER → 2019-10-16 | Day surgery (SDC) | payer OTHER, MEDICARE ==
[~2019-10-16] MED LIST changes: +BASAGLAR K100 UNIT/1 SUBQ; +HUMALOG KW200 UNIT/1 SUBQ; +PLAVIX 75 MG TA75 MG PO; +REPATHA SY140 MG/1 M SUBQ
--- NOTE | ~2019-10-16 | PROC ---
[facility] [address] [place] [address] PROCEDURE REPORT Name: МАРИНА PABLO Room: [facility]#: [id number] Admission: 10/16/19 Attend Phys: Rogers Farias MD Discharge: Date of : 54 Report #: [id number] THIS REPORT FOR: //name// For GI report, please see the Provation report in Perceptive 7 content. By: [facility] Records Staff LOUISA /SHELLY
[2019-10-16 09:48] LABS: HEMATOCRIT 46.4 % (42.0-52.0); HEMOGLOBIN 15.8 gm/dL (14.0-18.0); MCH 31.3 pg (26.0-34.0); MCV 92.1 fL (80.0-100.0); MPV 7.7 fl. (7.2-11.1); RBC 5.04 mil/uL (4.50-6.00); RDW-CV 14.4 % (10.5-14.5); WBC 6.2 thou/uL (4.0-11.0)
[2019-10-16 09:55] LABS: CALCIUM 9.2 mg/dL (8.5-10.1); CREATININE 1.7 mg/dL (0.6-1.3); POTASSIUM 4.7 mmol/L (3.5-5.1)
--- NOTE | 2019-10-16 14:24 | EKG ---
[place] [address] ELECTROCARDIOGRAM REPORT Name: NEERAJSASHAМАРИНА POZO Room: [facility]#: [id number] Admission: 10/16/19 Attend Phys: Rogers Farias MD Discharge: Date of : 54 Report #: [id number] THIS REPORT FOR: //name// [facility] Test Date: 2019-10-16 Test Time: 09:30:48 Pat Name: МАРИНА PABLO Department: Room: Gender: Quarter Seamer: : 1950 Requested By: Rogers Farias Order Number: [id number] Reading MD: Abel Erazo Measurements Intervals [place] Rate: 75 P: 31 VT: 191 QRS: -50 QRSD: 108 T: 48 QT: 415 QTc: 464 Interpretive Statements Sinus rhythm Incomplete RBBB and LAFB Consider right ventricular hypertrophy Compared to ECG 11/03/2018 03:42:24 No significant changes Electronically Signed On 10-16-2019 14:24:15 LAST MODEL MAKER by Abel Erazo [email or web address] <ELECTRONICALLY SIGNED> By: Abel Erazo MD, FAC 10/16/19 1424 0930 0930 Abel Erazo MD, [facility] /EPI
--- NOTE | 2019-10-19 02:06 | PATH ---
[address] [address] PATHOLOGY RPT PROCEDURE Name: МАРИНА PABLO Room: [facility]#: [id number] Admission: 10/16/19 Date of : 54 Discharge: Report #: [id number] Path Case #: [id number] [facility] Accession Number: [id number] . 01 Material submitted: . colon - TRANSVERSE COLON POLYPS. Modifiers: transverse . 01 Clinical history: . Esophageal varices, screening . 02 Diagnosis: "Transverse colon polyps", biopsy: - Tubular adenoma; no high grade dysplasia. . (CLW:mml; 10/18/2019) [facility] 10/18/2019 1346 Local . 02 Electronically signed: . Svetlana Mayer MD, Pathologist NPI- [id number] . 01 Gross description: . Received in formalin labeled "[place], Марина, transverse colon polyps," are multiple segments of beverly soft tissue admixed with vegetative material measuring 2.6 x 0.5 x 0.1 cm in aggregate dimensions. The specimen is filtered and entirely submitted in cassette A1. (TSD; 10/16/2019) TOB/TOB 10/16/2019 1942 Local . 02 Pathologist provided ICD-10: D12.3 . 02 CPT . 157377 Specimen Comment: A courtesy copy of this report has been sent to [phone] Specimen Comment: [phone] Specimen Comment: Report sent to / DR HERRERA Performed at: [address] [facility] [address], [place], [place] [id number] MD Manuelito Gann MD Phone: [phone] Performed at: [address] [facility] [address] [place] [place], [place] [id number] MD Kiel Holguin MD Phone: [phone]
== END | disposition home or self-care (01) ==
LOC: M.SUR 07:19
PROVIDERS: Internal Medicine Gastroenterology
DX: Z12.11 Encounter for screening for malignant neoplasm of colon (principal); D12.3 Benign neoplasm of transverse colon; K57.30 Diverticulosis of large intestine without perforation or abscess without bleeding; K64.4 Residual hemorrhoidal skin tags; N18.3 Chronic kidney disease, stage 3 (moderate); I50.32 Chronic diastolic (congestive) heart failure; Z98.890 Other specified postprocedural states; Z79.899 Other long term (current) drug therapy

== ENCOUNTER → 2020-04-01 | Outpatient (CLI) | payer OTHER, MEDICARE | LOC: M.ULTRA 08:49 | PROVIDERS: ATTEND Internal Medicine | DX: R16.2 Hepatomegaly with splenomegaly, not elsewhere classified (principal); K75.81 Nonalcoholic steatohepatitis (NASH); K74.60 Unspecified cirrhosis of liver; T84.9XXA Unspecified complication of internal orthopedic prosthetic device, implant and graft, initial encounter; Z94.4 Liver transplant status; Z79.899 Other long term (current) drug therapy ==

== ENCOUNTER → 2021-04-01 | Outpatient (CLI) | payer OTHER | LOC: M.ULTRA 07:55 | PROVIDERS: ATTEND Internal Medicine | DX: R16.2 Hepatomegaly with splenomegaly, not elsewhere classified (principal); K74.60 Unspecified cirrhosis of liver; D84.9 Immunodeficiency, unspecified; T86.49 Other complications of liver transplant; Z94.4 Liver transplant status ==